=== PATIENT | male | born 2000 | race Caucasian/White ===

== ENCOUNTER 2021-05-19 18:24 | Emergency (ER) | payer BC, SELFPAY ==
[2021-05-19 18:26] VITALS: BP 135/76; PULSE 85; RESP 22; TEMP 37.2; O2SAT 100; BMI 20.7
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
== END 2021-05-19 19:18 | disposition home or self-care (01) ==
PROVIDERS: Emergency Provider Emergency Medicine Emergency Medical Services; PCP Pediatrics
DX: F41.9 Anxiety disorder, unspecified (principal)
CPT/HCPCS: 99282; 99284

== ENCOUNTER → 2024-05-11 11:04 | Outpatient (BNVA) | payer OTHER, SELFPAY | PROVIDERS: PCP Pediatrics; Visit Provider Registered Nurse | DX: S67.191A Crushing injury of left index finger, initial encounter (principal); S62.631A Displaced fracture of distal phalanx of left index finger, initial encounter for closed fracture; W20.8XXA Other cause of strike by thrown, projected or falling object, initial encounter | CPT/HCPCS: 73140; 99204 ==

== ENCOUNTER 2024-05-12 08:57 | Outpatient (REF) | payer SELFPAY ==
--- NOTE | ~2024-05-12 | XR_ITS ---
EXAMINATION: XR HAND 3 OR MORE VIEWS LEFT HISTORY: M79.642 - Pain in left hand COMPARISON: Comparison is made with the prior examination dated 05/11/2024. FINDINGS: Three views of the left hand are submitted. Osseous mineralization is normal. Again seen is a nondisplaced fracture of the distal tuft of the index finger. The fracture line remains visible. No new fracture or dislocation is seen. The joint spaces are preserved. The soft tissues are unremarkable. XR/XR hand LT min 3V IMPRESSION: Nondisplaced fracture of the distal tuft of the index finger without change. Electronically signed by: Giovanny Avery MD 05/13/2024 07:14 AM [facility]
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
--- OUTSIDE RECORDS SUMMARY | 2024-05-12 10:09 | XMS_ITS | Encounter Summary ---
Author Organization [facility] Address [address] [place] [address] Care Team Providers Care Battery Checker Name Role Phone Ben Reese MD Primary Care Provider [phone] Reason for Referral * Imaging (Routine) - Closed Specialty Diagnoses / Procedures Referred By Irish sharma Referred To Contact Radiology Diagnoses Goiter Procedures US Head Neck Soft Tissue Ben Reese MD [address] [place] [id number] Referral ID Status Reason Start Date Expiration Date Visits Re quested Visits Authorized [id number] Closed 04/30/2024 04/30/2025 1 1 Reason for Visit * Reason Comments seizure like episodes due to anxiety mor e frequently Annual Exam Encounter Details Date Type Department Care Team (Late st Contact Info) Description 04/30/2024 8:15 AM EST Office Visit Adult Medicine [address] [phone] Ben Reese MD [address] [place] [id number] Physical exam (Primary Dx); Anxiety and depression; Attention deficit hyperactivity disorder (ADHD), unspecified ADHD type; Conversion disorder; Psychogenic nonepileptic seizure; Vitamin D deficiency disease; Bilateral impacted cerumen; Screening for diabetes mellitus (DM); Screening for deficiency anemia; Screening for hyperlipidemia; Screening for thyroid disorder; Goiter Social History Tobacco Use Types Packs/Day Years [...] file Not on file Not on file documented as of this encounter Last Filed Vital Signs Vital Sign Reading [...] Mass Index 29.68 04/30/2024 8:09 AM EST documented in this encounter Patient Instructions * Attachments The following attachments cannot be sent through Care Everywhere. * Well Visit: 18 to 65 Years (Spanish) documented in this encounter Progress Notes * Ben Reese MD - 04/30/2024 8:15 AM EST [facility] [address] [address] CHIEF COMPLAINT: seizure like episodes due to anxiety more frequently and Annual Exam IDENTIFIER: Flaco Vogel is a 23 y.o. old male. HPI: Patient presents today for annual physical exam. Complaints at today's visit: Seizure-like activity 3 months ago/physical exam Chronic medical illnesses: Pseudoseizures/conversion disorder, anxiety/depression, ADHD, IgA nephropathy, tendency for renal stone formation, mild asthma and left repair Patient does try to eat a balanced diet, does exercise regularly Patient does not smoke, patient does not drink alcohol in excess, patient does not use street drugs, patient does not drink caffeinated beverages in excess. Patient is not sexually active. Health Maintenance is reviewed, he is up-to-date for Tdap vaccine. He received flu vaccine today. He follows with psychiatrist for anxiety/depression and ADHD and he is on Zoloft 100 Adderall and his symptoms are under control In the past he was seen by the neurologist in [place] for seizure-like activity and workup was negative and he was diagnosed as conversion disorder/pseudoseizures. The last seizure-like activity was 3years ago and ongoing 3 months ago he had 1 episode of stiffness, staring lasted for a minute whilehe was at work. He is doing part-time job, he does not drive. Asthma symptoms are minimal and he rarely uses albuterol MDI ROS: GENERAL: No malaise, significant weight loss or fever HEENT: No changes in hearing or vision, nose bleeds or other nasal problems NECK: No lumps RESPIRATORY: No cough, wheezing or shortness of breath CARDIOVASCULAR: No chest pain, or palpitations GI: No abdominal pain, hematochezia, melena : No dysuria, oliguria, polyuria, hematuria, flank pain MUSCULOSKELETAL: No joint pain or swelling, back pain, or muscle pain. SKIN: No lesions, rash or itching NEURO: Seizure-like activity 3 months ago. 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/14/2015 ADHD (attention deficit hyperactivity disorder) 05/29/2012 Migraines 04/24/2012 Psychogenic nonepileptic seizure 11/15/2011 Hematuria 06/11/2011 Eczema 08/23/2009 Mild persistent asthma 05/01/2009 Allergic rhinitis 09/09/2007 Unilateral cleft palate with cleft lip, complete 05/02/2006 SOCIAL HISTORY: Social History Tobacco Use Smoking status: Never Smokeless tobacco: Never Substance Use Topics Alcohol use: Never FAMILY HISTORY: Family Status Relation Name Status Mother Alive Kristina Vogel03/08/77 Father Alive Jose Vogel ,08/14/75 Brother (Not Specified) Brother (Not Specified) Brother Alive Jose Vogel MGF (Not Specified) PGF (Not Specified) Aunt (Not Specified) Other (Not Specified) Neg Hx (Not Specified) No partnership data on file Family History Problem Relation Name Age of Onset Jaqueline's thyroiditis Mother Other (Other: colitis) Brother Other (Other: JRA) Brother Diabetes Maternal Grandfather Hypertension Maternal Grandfather Other (Other: gastric cancer) Paternal Grandfather Seizures Aunt Asthma Other cousin Coronary artery disease Neg Hx ACTIVE MEDICATIONS: Current Outpatient Medications: albuterol HFA (PROAIR HFA ; PROVENTIL HFA ; VENTOLIN HFA) 90 mcg/actuation inhaler, Inhale 2 Puffs into the lungs every 4 hours as needed for Cough or Wheezing (one for home one for school)., Disp: ,Rfl: cetirizine (ZyrTEC) 10 mg tablet, Take 1 Tab by mouth daily for 360 days., Disp: , Rfl: epinephrine (EPIPEN INJ), None Entered, Disp: , Rfl: sertraline (ZOLOFT) 100 mg tablet, Take 100 mg by mouth at bedtime., Disp: , Rfl: amphetamine-dextroamphetamine (ADDERALL) 20 mg tablet, Take 1 tablet (20 mg total) by mouth 1 (one)time each day. Max Daily Amount: 20 mg, Disp: , Rfl: ALLERGIES: Allergies Allergen Reactions Cat Dander Dog Dander House Dust Nut - Unspecified Tree Nuts Pollen Extracts Ragweed PHYSICAL EXAM: Blood pressure 129/87, pulse 81, temperature 36.5 ??C (97.7 ??F), temperature source Oral, resp. rate 18, height 1.753 m (69 ), weight 91.2 kg (201 lb). Body mass index is 29.68 kg/m??. BMI is greater than 25.0 (above the normal range) - see Plan APPEARANCE: Alert and in no acute distress EYES: PERRLA, conjunctiva and sclera normal. EARS: Bilateral cerumen impaction NOSE/SINUS: Nares normal. MOUTH/THROAT: Cleft lip repair HEART: RRR with normal S1 and S2, no murmurs LUNG: clear to auscultation, no wheezing ABDOMEN: Bowel sounds normoactive, soft, non-tender and no palpable masses. BACK: No pain to palpation EXTREMITIES: No edema NEURO: Awake, alert and oriented x 3. No focal neurological deficits SKIN: No rashes LABS/IMAGING: No results found for: WBC , HGB , HCT , MCV No results found for: NA , K , CO2 , CL , BUN , GLU , ALB , ALKPHOS , TP No results found for: CHOL , LDL , HDL , TRIG IMPRESSION: 1. Physical exam 2. Anxiety and depression 3. Attention deficit hyperactivity disorder (ADHD), unspecified ADHD type 4. Conversion disorder 5. Psychogenic nonepileptic seizure 6. Vitamin D deficiency disease 7. Bilateral impacted cerumen 8. Screening for diabetes mellitus (DM) 9. Screening for deficiency anemia 10. Screening for hyperlipidemia 11. Screening for thyroid disorder 12. Goiter PLAN: 1. Health Maintenance is reviewed, he is up-to-date for Tdap vaccine. He received flu vaccine today. Labs ordered including CBC, CMP, A1c, lipid panel, TSH, vitamin D and magnesium level 2. He follows with a psychiatrist for anxiety/depression/ADHD. He is on Zoloft and Adderall. 3. He has history of pseudoseizures. 3 months ago he has an episode of stiffness and staring lastedfor a minute. He does not drive. Patient was referred to the neurologist and he has to call Dr. Mcwilliams office to make an appointment and I have given the office phone number. 4. He had mild cerumen impaction on both sides and I recommended him to use Debrox eardrops for next 3 to 4 days. 5. He has a goiter, I will check TSH level and I will order ultrasound thyroid to rule out thyroid nodule. 6. Follow-up exam in 1 year for physical exam/sooner as needed Genetic cancer syndrome screening: Reviewed Patient was recommended to see the Dentist and eye doctor at least once a year Discussed healthy dietary choices. Discussed increasing dietary fiber through fruits, veggies, whole grains. Advised the patient to exercise 30mins a day most days of the week. Advised patient to use sunscreen, hats, clothing while outdoors in direct sunlight. Advised patient to wear a seatbelt while in the car. Advised the patient to check smoke/fire alarms at home regularly. Testicular self exams regularly for testicular cancer screening. Discussed safe sex practices I have reviewed the following sections of the chart: Tobacco Med Hx Surg Hx Fam Hx Soc Hx Orders Placed This Encounter Procedures US Head Neck Soft Tissue Standing Status: Future Standing Expiration Date: 04/30/2025 Order Specific Question: In what REGION should this be scheduled? Answer: [facility] [[id number]] Order Specific Question: In what [place] LOCATION should this be scheduled? Answer: [facility] [address] [facility] [[id number]] Influenza trivalent, MDCK, 0.5mL, preservative free (Flucelvax) 6mo and older Hemoglobin A1c Standing Status: Future Standing Expiration Date: 04/30/2025 CBC and differential Standing Status: Future Standing Expiration Date: 04/30/2025 Comprehensive metabolic panel Standing Status: Future Standing Expiration Date: 04/30/2025 Lipid panel with reflex to direct LDL Standing Status: Future Standing Expiration Date: 04/30/2025 Thyroid stimulating hormone with reflex to free t4 and free t3 Standing Status: Future Standing Expiration Date: 04/30/2025 Magnesium Standing Status: Future Standing Expiration Date: 04/30/2025 Vitamin D 25 hydroxy Standing Status: Future Standing Expiration Date: 04/30/2025 Ben Reese MD on 04/30/2024 at 8:58 AM EST documented in this encounter Plan of Treatment Scheduled Orders Name Type Priority Associated Diagnoses Orde r Schedule Hemoglobin A1c Lab Routine Physical exam Anxiety and depression Attention deficit hyperactivity disorder (ADHD), unspecified ADHD type Conversion disorder Psychogenic nonepileptic seizure Vitamin D deficiency disease Screening for diabetes mellitus (DM) Screening for deficiency anemia Screening for hyperlipidemia Screening for thyroid disorder 1 Occurrences starting 04/30/2024 until 04/30/2025 CBC and differential Lab Routine Physical exam Anxiety and depression Attention deficit hyperactivity disorder (ADHD), unspecified ADHD type Conversion disorder Psychogenic nonepileptic seizure Vitamin D deficiency disease Screening for diabetes mellitus (DM) Screening for deficiency anemia Screening for hyperlipidemia Screening for thyroid disorder 1 Occurrences starting 04/30/2024 until 04/30/2025 Comprehensive metabolic panel Lab Routine Physical exam Anxiety and depression Attention deficit hyperactivity disorder (ADHD), unspecified ADHD type Conversion disorder Psychogenic nonepileptic seizure Vitamin D deficiency disease Screening for diabetes mellitus (DM) Screening for deficiency anemia Screening for hyperlipidemia Screening for thyroid disorder 1 Occurrences starting 04/30/2024 until 04/30/2025 Lipid panel with reflex to direct LDL Lab Routine Physical exam Anxiety and depression Attention deficit hyperactivity disorder (ADHD), unspecified ADHD type Conversion disorder Psychogenic nonepileptic seizure Vitamin D deficiency disease Screening for diabetes mellitus (DM) Screening for deficiency anemia Screening for hyperlipidemia Screening for thyroid disorder 1 Occurrences starting 04/30/2024 until 04/30/2025 Thyroid stimulating hormone with reflex to free t4 and free t3 Lab Routine Physical exam Anxiety and depression Attention deficit hyperactivity disorder (ADHD), unspecified ADHD type Conversion disorder Psychogenic nonepileptic seizure Vitamin D deficiency disease Screening for diabetes mellitus (DM) Screening for deficiency anemia Screening for hyperlipidemia Screening for thyroid disorder 1 Occurrences starting 04/30/2024 until 04/30/2025 Magnesium Lab Routine Physical exam Anxiety and depression Attention deficit hyperactivity disorder (ADHD), unspecified ADHD type Conversion disorder Psychogenic nonepileptic seizure Vitamin D deficiency disease Screening for diabetes mellitus (DM) Screening for deficiency anemia Screening for hyperlipidemia Screening for thyroid disorder 1 Occurrences starting 04/30/2024 until 04/30/2025 Vitamin D 25 hydroxy Lab Routine Physical exam Anxiety and depression Attention deficit hyperactivity disorder (ADHD), unspecified ADHD type Conversion disorder Psychogenic nonepileptic seizure Vitamin D deficiency disease Screening for diabetes mellitus (DM) Screening for deficiency anemia Screening for hyperlipidemia Screening for thyroid disorder 1 Occurrences starting 04/30/2024 until 04/30/2025 documented as of this encounter Results * US Head Neck Soft Tissue [...] Signed Date: 05/05/2024 18:30 ET Workstation ID: [id number] Transcribed By: Self Edit Transcribed Date: 05/05/2024 [...] Signed Date: 05/05/2024 18:30 ET Workstation ID: [id number] Transcribed By: Self Edit Transcribed Date: 05/05/2024 18:29 ET Ben Reese MD IM US PROCEDURES documented in this encounter Visit Diagnoses Diagnosis Physical exam- Primary Unspecified general medical examination Anxiety and depression Attention deficit hyperactivity disorder (ADHD), unspecified ADHD type Conversion disorder Psychogenic nonepileptic seizure Vitamin D deficiency disease Unspecified vitamin D deficiency Bilateral impacted cerumen Impacted cerumen Screening for diabetes mellitus (DM) Screening for diabetes mellitus Screening for deficiency anemia Screening for other and unspecified deficiency anemia Screening for hyperlipidemia Screening for lipoid disorders Screening for thyroid disorder Goiter Goiter, unspecified Goiter Goiter, unspecified documented in this encounter Discontinued Medications Medication Sig Discontinue Reason Start Date End Da te ketotifen fumarate (ZADITOR) 0.035 % ophthalmic solution Place 1 Drop into both eyes 2 times daily as needed (allergy symptoms). 09/03/2019 04/30/2024 documented as of this encounter Historical Medications * This list may reflect changes made after this encounter. Medication Sig Dispensed Refills Start Date End Date amphetamine-dextroamphetam ine (ADDERALL) 20 mg tablet Take 1 tablet (20 mg total) by mouth 1 (one) time each day. Max Daily Amount: 20 mg added in this encounter Orders Immunization/Injection Count Last Ordered Date First Ordered Date INFLUENZA TRIVALENT, MDCK, 0 .5ML, PRESERVATIVE FREE (FLUCELVAX) 6MO AND OLDER 1 04/30/2024 documented in this encounter Care Teams Battery Checker Relationship Specialty Start Date End Date Ben Reese MD [address] [place] [address] PCP - General Internal Medicine 08/03/21 documented as of this encounter
--- OUTSIDE RECORDS SUMMARY | 2024-05-12 10:09 | XMS_ITS | Encounter Summary ---
Author Organization [facility] Address [address] [place] [address] Care Team Providers Care Tear Down Matcher Name Role Phone Ben Reese MD Primary Care Provider Reason for Referral * Imaging (Routine) - Closed Specialty Diagnoses / Procedures Referred By Irish sharma Referred To Contact Radiology Diagnoses Goiter Procedures US Head Neck Soft Tissue Ben Reese MD [address] [place] [address] Referral ID Status Reason Start Date Expiration Date Visits Re quested Visits Authorized [id number] Closed 04/30/2024 04/30/2025 1 1 Reason for Visit * Imaging (Routine) - Closed Specialty Diagnoses / Procedures Referred By Irish sharma Referred To Contact Radiology Diagnoses Goiter Procedures US Head Neck Soft Tissue Ben Reese MD [address] [place] [address] [address] Referral ID Status Reason Start Date Expiration Date Visits Re quested Visits Authorized [id number] Closed 04/30/2024 04/30/2025 1 1 Encounter Details Date Type Department Care Team (Latest Contact Info) Description 05/05/2024 6:07 PM EST - 05/05/2024 11:59 PM EST Hospital Encounter Radiology Department - [address] [phone] Goiter Discharge Disposition: Home or Self Care Social History Tobacco Use Types Packs/Day Years Used Date Smoking Tobacco: Never Smokeless Tobacco: Never Alcohol Use Standard Drinks/Week Comments Never 0 (1 standard drink = 0.6 oz pur e alcohol) Sex and Gender Information Value Date Recorded Sex Assigned at Not on file Gender Identity Not on file Sexual Orientation Not on file Job Start Date Occupation Industry Not on file Not on file Not on file documented as of this encounter Medications at Time of Discharge Medication Sig Dispensed Refills Start Date End Date albuterol HFA (PROAIR HFA ; PROVENTIL HFA ; VENTOLIN HFA) 90 mcg/actuation inhaler Inhale 2 Puffs into the lungs every 4 hours as needed for Cough or Wheezing (one for home one for school). 08/05/2022 amphetamine-dextroampheta mine (ADDERALL) 20 mg tablet Take 1 tablet (20 mg total) by mouth 1 (one) time each day. Max Daily Amount: 20 mg cetirizine (ZyrTEC) 10 mg tablet Take 1 Tab by mouth daily for 360 days. 10/04/2016 epinephrine (EPIPEN INJ) None Entered sertraline (ZOLOFT) 100 mg tablet Take 100 mg by mouth at bedtime. documented as of this encounter Discharge Disposition Disposition Code Departure Means Destination Home or Self Care documented in this encounter Plan of Treatment Not on file documented as of this encounter Procedures Procedure Name Priority Date/Time Associated Diagnosis Comments US HEAD NECK SOFT TISSUE Routine 05/05/2024 6:24 PM EST Goiter documented in this encounter Results * US Head Neck [...] Signed Date: 05/05/2024 18:30 ET Workstation ID: [id number] Transcribed By: Self Edit Transcribed Date: 05/05/2024 [...] Signed Date: 05/05/2024 18:30 ET Workstation ID: [id number] Transcribed By: Self Edit Transcribed Date: 05/05/2024 18:29 ET Ben Reese MD IMG US PROCEDURES documented in this encounter Visit Diagnoses Diagnosis Goiter Goiter, unspecified documented in this encounter Care Teams Tear Down Matcher Relationship Specialty Start Date End Date Ben Reese MD [address] [place] [address] PCP - General Internal Medicine 08/03/21 documented as of this encounter
--- OUTSIDE RECORDS SUMMARY | 2024-05-12 10:09 | XMS_ITS | Clinical Summary ---
Author Organization [facility] Address [address] [facility] [address] [place] [address] Phone Care Team Providers Care Dairy And Food Laboratory Assistant Name Role Phone Karthikeyan Eduardo MD Primary Care Provider Unavaila ble Allergies No known active allergies Medications albuterol HFA (PROVENTIL HFA;VENTOLIN HFA) 108 (90 Base) MCG/ACT inhaler Inhale 2 puffs every 4 (four) hours Active amphetamine-dex troamphetamine (ADDERALL) 20 MG tablet Take 1 tablet by mouth every morning Active cetirizine (ZyrTEC) 10 MG tablet Take 1 tablet by mouth 1 (one) time each day Active clotrimazole (LOTRIMIN) 1 % cream by Other route 2 (two) times a day As needed Active escitalopram (LEXAPRO) 20 MG tablet 08/17/2020 Active hydrocortisone 2.5 % lotion by Other route 2 (two) times a day As needed Active ketotifen (ZADITOR) 0.025 % ophthalmic solution 1 drop 3 (three) times a day Active hydrOXYzine (VISTARIL) 50 MG capsule TAKE 1 CAPSULE BY MOUTH THREE TIMES A DAY NEEDED PRN ANXIETY 08/04/2020 Active sertraline (ZOLOFT) 100 MG tablet Take 100 mg by mouth 1 (one) time each day Active Active Problems Problem Noted Date Diagnosed Date Chronic renal failure 10/17/2022 Serum creatinine above reference range 3 [place] hematuria 08/24/2020 Immunizations Name Administration Dates Next Due Influenza Split High Dose Preservative Free IM 1 04/14/2017 Family History Medical History Relation Comments Diabetes Maternal Grandfather Heart disease Maternal Grandfather Hypertension Maternal Grandfather Kidney disease Maternal Grandfather Anemia Mother Cancer Paternal Grandfather Relation Status Comments Father Alive Maternal Grandfather Mother Alive Paternal Grandfather Social History Tobacco Use Types Packs/Day Years Used Date Smoking Tobacco: Never Smokeless Tobacco: Never Tobacco Cessation:Counseling Given: Not Answered Alcohol Use Standard Drinks/Week Comments No 0 (1 standard drink = 0.6 oz pur e alcohol) Sex and Gender Information Value Date Recorded Sex Assigned at Not on file Legal Sex Male 4:53 PM EST Gender Identity Not on file Sexual Orientation Not on file Last Filed Vital Signs Vital Sign Reading Time Taken Comments Blood Pressure 119/77 10/17/2022 9:04 AM EDT Pulse 74 10/17/2022 9:04 AM EDT Temperature - - Respiratory Rate - - Oxygen Saturation 95% 10/17/2022 9:04 AM EDT Inhaled Oxygen Concentration - - Weight 77.1 kg (170 lb) 10/17/2022 9:04 AM EDT Height 175.3 cm (5' 9 ) 10/17/2022 9:04 AM EDT Body Mass Index 25.1 10/17/2022 9:04 AM EDT Plan of Treatment Health Maintenance Due Date Last Done Comments Pneumococcal Vaccine: Pediat rics (0 to 5 Years) and At-Risk Patients (6 to 64 Years) (1 of 2 - PCV) 2006 2001, 01/19/2001, 2000, Additional history exists Influenza Vaccine (#1) 2023 , 02/17/2019, 02/12/2018, Additional history exists Hepatitis B Vaccine Completed 05/27/2001, 2000, [address] [place] [address] [place] [address] Care Teams Dairy And Food Laboratory Assistant Relationship Specialty Start Date End Date Karthikeyan Eduardo MD PCP - General 04/24/20
== END 2024-05-12 08:58 | disposition home or self-care (01) ==
LOC: HO.HOSX 08:57
PROVIDERS: Visit Provider Orthopaedic Surgery
DX: M79.642 Pain in left hand (principal); S62.630A Displaced fracture of distal phalanx of right index finger, initial encounter for closed fracture; S63.260A Dislocation of metacarpophalangeal joint of right index finger, initial encounter; W23.1XXA Caught, crushed, jammed, or pinched between stationary objects, initial encounter; Y93.89 Activity, other specified; Y92.63 Factory as the place of occurrence of the external cause; Y99.0 Civilian activity done for income or pay
CPT/HCPCS: 26750; 73130; 99202

== ENCOUNTER → 2024-05-12 09:28 | Outpatient (BNV) | payer SELFPAY | PROVIDERS: Visit Provider Radiology Diagnostic Radiology | DX: S62.661A Nondisplaced fracture of distal phalanx of left index finger, initial encounter for closed fracture (principal) | CPT/HCPCS: 73130 ==

== ENCOUNTER 2024-06-15 08:42 | Outpatient (AMB) | payer OTHER, BC, SELFPAY ==
--- NOTE | 2024-06-15 08:50 | A.OFFVIS_ITS ---
Vital Signs 06/15/24 08:52 Height 5 ft 9 in Weight 199 lb BMI 29.4 Intake Visit Reasons: OV- LT hand 2nd digit fx DOI 05/11/24 f/u Intake Note: Flaco 23 yr old male presents today for his follow up visit for his W/C injury to his Right index finger MCP joint dorsal dislocation, S/P reduction at work connections DOI: 05/11/24. Last visit he was advise to work on his ROM and do malathi taping. Currently states he no longer malathi tapes and is doing well with his ROM. States no concerns for today. Allergies environmental allergies Allergy (Verified 06/15/24 08:57) Unknown HPI HPI OV- LT hand 2nd digit fx DOI 05/11/24 f/u: Details: Flaco is a 23 year old right hand dominant man who returns for his right left index finger fracture dislocation, S/P crush injury at work, DOI: 05/11/24. This is a work-related injury. He says he is doing well overall, without complaints. He has stopped Malathi- taping his fingers and continues to work on ROM exercises at home. He has returned to work on light duty and says this is going well. He would like to discuss his RTW status. 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 Review of Systems Const All systems reviewed & are unremarkable except as noted in HPI and below Physical Exam Vital Signs: BMI result Body Mass Index 29.4 Const General: no acute distress and alert Orientation/consciousness: patient oriented x3 Neuro General: patient oriented x3 Extrem Other: Evaluation of Right Upper Extremity: The patient is alert, oriented, and in no acute distress Neuro: Median, Ulnar, Radial nerves motor and sensory intact and sensation is normal to the tips of all digits Vascular: Cap refill brisk ROM: He can make a fist and extend all his digits No tenderness or swelling about the index finger MCP joint. Full active range of motion at the MCP joint without pain. The MCP joint was stable on exam Index fingertip not tender to palpation. Psych Appearance: grossly normal Affect: normal affect Attitude: cooperative Assessment & Plan Assessment & Plan (1) Closed fracture of tuft of distal phalanx of right index finger: Code(s): S62.630A - Displaced fracture of distal phalanx of right index finger, initial encounter for closed fracture Category: Medical (2) Dislocation of metacarpophalangeal joint of right index finger: Code(s): S63.260A - Dislocation of metacarpophalangeal joint of right index finger, initial encounter Category: Medical Plan Assessment & Plan: 1. Right index finger distal phalanx tuft fracture S/P crush injury at work, DOI; 05/11/24 This is a work related injury 2. Right index finger MCP joint dorsal dislocation, S/P reduction at work connections DOI: 05/11/24 Reduced at Work Connections: 05/11/24 I educated him about this condition He has discontinued his malathi-taping at this time I discussed activity modifications, he is to begin to use his hand for more normal activities. He should still avoid any heavy impact activities or falls for the next few weeks. He will continue to work on ROM exercises at home. He was given a note for work to return on 06/15/24 on full duty with no restrictions. He will follow up prn Scribed for Laura Hauser MD by Dwayne Gallardo, medical coding auditor, on 06/15/24 at 9:15 AM, EST. Coding Level of Care Code Global (54534) Diagnoses Closed fracture of tuft of distal phalanx of right index finger S62.630A Dislocation of metacarpophalangeal joint of right index finger S63.260A
[2024-06-15 08:52] VITALS: BMI 29.4
--- OUTSIDE RECORDS SUMMARY | 2024-06-15 09:17 | XMS_ITS | Clinical Summary ---
Author Organization [facility] Address [address] [facility] [address] [place] [address] Phone Care Team Providers Care Linen Sorter Name Role Phone Karthikeyan Eduardo MD Primary [...] B Vaccine Completed 05/27/2001, 2000, [address] [place] [address] Care Teams Linen Sorter Relationship Specialty Start Date End Date Karthikeyan Eduardo MD PCP - General 04/24/20
--- OUTSIDE RECORDS SUMMARY | 2024-06-15 09:18 | XMS_ITS | Clinical Summary ---
Author Organization [facility] [address] [place] [address] [place] [phone] Phone Care Team Providers Care Biostatistician Name Role Phone Ben Reese MD Primary Care Provider Allergies Active Allergy Reactions Criticality Noted Date Comments Cat Dander 09/05/2006 Dog Dander 09/05/2006 House Dust 09/05/2006 Nut - Unspecified 09/05/2006 Tree Nuts Pollen Extracts 09/05/2006 Ragweed 09/05/2006 Medications albuterol HFA (PROAIR HFA ; PROVENTIL HFA ; VENTOLIN HFA) 90 mcg/actuation inhaler Inhale 2 Puffs into the lungs every 4 hours as needed for Cough or Wheezing (one for home one for school). 08/05/2022 Active epinephrine (EPIPEN INJ) None Entered Acti ve cetirizine (ZyrTEC) 10 mg tablet Take 1 Tab by mouth daily for 360 days. 10/04/2016 Active sertraline (ZOLOFT) 100 mg tablet Take 100 mg by mouth at bedtime. Active amphetamine-dex troamphetamine (ADDERALL) 20 mg tablet Take 1 tablet (20 mg total) by mouth 1 (one) time each day. Max Daily Amount: 20 mg Active Active Problems Problem Noted Date Diagnosed [...] Nl EEG 04/19/14 sz weekly ref to [facility] for second opinion 12/27 Neuro: none since started on Keppra, no changes, continue topiramate migraine dose. FU in 6 M 03/11/14 Neuro:last sx 12/26, mil motor tic, bend neck to left, no change in dose Topiramate FU 6 M 06/24/14 4 sz in a month, topamax increased 10/05/14 down topiramate to migraine dose, keppra same dose, last sz 08/08/14 05/04/15 Neuro [facility] 2nd opinion: overnight EEG(nocturnal enuresis ? Sz) candidate for trileptal if focal findings on EEG. FU in 3 M 07/21/15 Neuro [facility]: EEG NL no changes FU 6 M 02/02/16 Neuro [facility]: having frequent sz : continue on keppra, clobzapan, add valproic acid and wean topiramate 02/23/16 Neuro [facility]: MRI, continue Depakote wean topamax, then decrease Clobazepam. Only happening at school try to tape. 03/15/16 MRI: NL, asymetric L hippocampus ? Artifact 07/20/16 [facility]: psychogenic episodes, ambulatory EEG NL even during episodes. Only at school, to see psychologist, decrease clobazepam, FU 4 M 10/11/16 Neuro [facility]: Events consistent with psychogenic nonepileptic events, episodes are less frequent to start weaning antiseizure medication. Repeat MRI after braces are taken off follow-up in the fall. 02/09/17 [facility]:no events during the summer, wean depakote, MRI once off braces, FU 6 M 07/21/2017 no more sz after Adderall was stopped, most likely due to it. 09/05/17 [facility]: No changes, MRI after braces removed, continue straterra, to see psychiatry, FU 6 M 04/25/18 [facility]: Continue with sz like episodes, not on weekend, thinking still about pseudosz, ref to psychiatric.will review recent MRI. 09/27/[address] Borges at : Psychogenic nonepileptic seizures no need to repeat EEG follow-up in 6 months. 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 Calix as per Dr Nadeem pimentel Last Assessment & Plan: Immunotherapy still, well controlled. Unilateral cleft palate with cleft lip, complete 05/02/2006 Overview (03/09/2024): 10/31/09 Iliac crest alveolar [facility] Encounters Date Type Department Care Team Description 05/26/2024 Telephone Adult Medicine [address] [phone] Ben Reese MD Referral (Fax requesting an insurance referral - orthopedics) 05/05/2024 6:07 PM EST - 05/05/2024 11:59 PM EST Hospital Encounter Radiology Department - [address] [phone] Goiter Discharge Disposition: Home or Self Care 04/30/2024 8:15 AM EST Office Visit Adult Medicine [address] [phone] Ben Reese MD Physical exam (Primary Dx); [...] (Infanrix) 6wks to less than 7yo ,03/16/2002,01/20/2001,12/12,2000 [id number] (Pentacel) 2mo to less than 5yo 09/30/2001,01/20/2001,2000,09/22 [...] cyst removal OTHER SURGICAL HISTORY 04/23 PROCEDURE: MO PALATOPHARYNGOPLASTY OTHER SURGICAL HISTORY PROCEDURE: LAPAROSCOPY, CHOLECYSTECTOMY; COMMENT: removal of gall stones 07/18/11 TYMPANOSTOMY TUBE PLACEMENT 05/25/13 PROCEDURE: HISTORICAL PE TUBES; COMMENT: 08/2014 Medical History Medical History Date Comments Epilepsy (CMS/HCC) DX:Epilepsy ( HCC) Hydrocele DX:Hydrocele; CO MMENT: resolved Hypospadias DX:Hypospadias; COMMENT: repaired Cleft lip and cleft palate DX:Cl eft lip and cleft palate; COMMENT: followed at [facility] cleft lip clinic Mild persistent asthma [...] 11/29/2009 DX:Depression; C OMMENT: Letter received from [facility] requesting records 11/24/09 Hematuria 06/11/2011 DX:Hematuria; CO [...] Jose Vogel ,08/14/75 Maternal Grandfather Mother Alive Ambreen Vogel Other Paternal Grandfather Social History Tobacco Use Types Packs/Day Years Used Date Smoking Tobacco: Never Smokeless Tobacco: Never Tobacco Cessation:Counseling Given: Not Answered Alcohol Use Standard Drinks/Week Comments Never 0 (1 standard drink = 0.6 oz pur e alcohol) Sex and Gender Information Value Date Recorded Sex Assigned at Not on file Legal Sex Male 7:55 AM EST Gender Identity Not on file Sexual Orientation Not on file Obstetrics History Last Filed [...] to 64 Years) (1 of 1 - PPSV23) 2006 2001, 01/19/2001, 2000, Additional history exists Meningococcal B Vacine (1 of 2 - Standard) 2016 Depression Screening 03/23/2022 HIV Screening 03/23/2022 Hepatitis [...] Completed 10/11/2009, 2001 HPV Vaccines Completed 12/29/2015, 0 07/2014, 12/14/2013 Meningococcal ACWY Vaccine Completed 01/03/2017, [...] Signed Date: 05/05/2024 18:30 ET Workstation ID: [id number] Transcribed By: Self Edit Transcribed Date: 05/05/2024 [...] Signed Date: 05/05/2024 18:30 ET Workstation ID: [id number] Transcribed By: Self Edit Transcribed Date: 05/05/2024 18:29 ET us Ben Reese MD IM US PROCEDURES Final Res ult from Last 3 Months Insurance [facility] Care Teams Biostatistician Relationship Specialty Start Date End Date Ben Reese MD [address] [place] [address] PCP - General Internal Medicine 08/03/21
--- OUTSIDE RECORDS SUMMARY | 2024-06-15 09:18 | XMS_ITS | Encounter Summary ---
Author Organization [facility] Address [address] [place] [address] Care Team Providers Care Wildlife Officer Name Role Phone Ben Reese MD Primary Care Provider [phone] Reason for Referral * Consultation (Routine) - Pending Review Specialty Diagnoses / Procedures Referred By Irish sharma Referred To Contact Orthopaedics Diagnoses Left hand pain Ben Reese MD [address] [place] [address] Phone: tel: fax: Referral ID Status Reason Start Date Expiration Date Visits Requested Visits Authorized [id number] Pending Review Specialty Services Required 05/26/2024 05/26/2025 1 1 Reason for Visit * Reason Onset Date Comments Referral 05/26/2024 Fax requesting a n insurance referral - orthopedics Encounter Details Date Type Department Care Team ([facility] Contact Info) Description 05/26/2024 Telephone Adult Medicine [address] [phone] Ben Reese MD [address] [place] [address] Referral (Fax requesting an insurance referral - orthopedics) Social History Tobacco Use Types Packs/Day Years Used Date Smoking Tobacco: Never Smokeless Tobacco: Never Alcohol Use Standard Drinks/Week Comments Never 0 (1 standard drink = 0.6 oz pur e alcohol) Sex and Gender Information Value Date Recorded Sex Assigned at Not on file Legal Sex Male 7:55 AM EST Gender Identity Not on file Sexual Orientation Not on file documented as of this encounter Progress Notes * Amanda Moreau - 05/26/2024 12:17 PM EST Fax rec'd requesting an ins referral Caller: Fax Office: [facility] Orth[facility]ics Specialty: orthopedics Insurance: ID: [id number] Provider: Cris Hauser DOS: 05/12/24 Visits: 6 Dx code: M79.642 Pls create an order with the above information so that I may process it through the pts insurance. Thank you IMPORTANT Pls copy and paste the above info into the order. Otherwise, it will not be processed as an ins referral documented in this encounter Plan of Treatment Scheduled Referrals Name Type Priority Associated Diagnoses Order Schedule Ambulatory referral to Orthopedic Outpatient Referral Routine Left hand pain 1 Occurrences starting 05/26/2024 until 05/26/2025 documented as of this encounter Visit Diagnoses Diagnosis Left hand pain- Primary Pain in soft tissues of limb documented in this encounter Care Teams Wildlife Officer Relationship Specialty Start Date End Date Ben Reese MD [address] [place] [address] PCP - General Internal Medicine 08/03/21 documented as of this encounter
== END 2024-06-15 09:16 | disposition home or self-care (01) ==
PROVIDERS: PCP Internal Medicine; Visit Provider Orthopaedic Surgery
DX: S62.630A Displaced fracture of distal phalanx of right index finger, initial encounter for closed fracture (principal); S63.260A Dislocation of metacarpophalangeal joint of right index finger, initial encounter
CPT/HCPCS: 99024

== ENCOUNTER → 2024-06-15 08:42 | Outpatient (BNVA) | payer OTHER, BC, SELFPAY | PROVIDERS: PCP Internal Medicine; Visit Provider Orthopaedic Surgery | DX: S62.630D Displaced fracture of distal phalanx of right index finger, subsequent encounter for fracture with routine healing (principal); S63.260D Dislocation of metacarpophalangeal joint of right index finger, subsequent encounter | CPT/HCPCS: 99212 ==